=== PATIENT | male | born 1945 | race Caucasian/White ===

== ENCOUNTER 2017-03-06 08:39 | Inpatient (IN) | payer OTHER ==
[2017-03-01 11:49] VITALS: BMI 28.1
[2017-03-06] MEDS ORDERED: oxyCODONE HCL 10 MG SUSTAINED ACTING TABLET ONE (09:26)
[2017-03-06] MEDS: oxyCODONE HCL 10 MG SUSTAINED ACTING TABLET PO ONE (09:30)
--- NOTE | 2017-03-06 11:36 | HP ---
History & Physical Update - History History: No Change - Physical Physical: No Change - Assessment Assessment: No Change - Plan Plan: No Change
[2017-03-06] MEDS ORDERED: BUPIVACAINE HCL/PF 0.5% (5MG/ML) 10 ML VIAL ONE (12:07)
[2017-03-06] MEDS ORDERED: MIDAZOLAM HCL 2 MG/2 ML SINGLE DOSE VIAL ONE (12:08)
[2017-03-06] MEDS ORDERED: LIDOCAINE 1%/EPI 1:100000 (20 ML MULTI DOSE VIAL) ONE (12:22)
[2017-03-06] MEDS ORDERED: THROMBIN (BOVINE) 5,000 UNIT VIAL TP ONE (12:22)
[2017-03-06] MEDS ORDERED: GELATIN, ABSORBABLE 100 EACH SPONGE TP ONE (12:22)
[2017-03-06] MEDS ORDERED: LIDOCAINE 1%/EPI 1:100000 (50 ML MULTI DOSE VIAL) INF ONE (12:30)
[2017-03-06] MEDS ORDERED: ePHEDrine SULFATE 50 MG/1 ML AMPULE ONE (12:47)
[2017-03-06] MEDS ORDERED: BUPIVACAINE HCL/PF 2.5 MG/ML - 30 ML VIAL IJ ONE (14:39)
[2017-03-06] MEDS ORDERED: BUPIVACAINE HCL/PF 0.25% (2.5MG/ML) 10 ML VIAL IJ ONE ×2 (14:53)
[2017-03-06] MEDS ORDERED: oxyCODONE HCL 5 MG TABLET PO PRN ×2 (14:54→15:33)
[2017-03-06] MEDS ORDERED: ONDANSETRON 4 MG/2 ML VIAL IVPUSH PRN (14:54)
[2017-03-06] MEDS ORDERED: LACTATED RINGERS SOLUTION 1,000 ML IV SCH ×2 (15:00→15:45)
[2017-03-06] MEDS ORDERED: diazePAM 5 MG TABLET ONE (15:07)
[2017-03-06] MEDS: diazePAM 5 MG TABLET PO ONE (15:30)
--- NOTE | 2017-03-06 15:30 | OP ---
Operative Note - Note: Pre-Operative Diagnosis: lumbar spondylolisthesis Operation: posterior lumbar decompression, fusion, instrumentation, Transformainal interbody lumbar fusion of L5-S1 with allograft and neuromitoring Post-Operative Diagnosis: Same as Pre-op Surgeon: Manjinder Moore Aircraft Electrician: Gi Albert Anesthesiologist/CONSULTING BUSINESS DEVELOPER: Dimitri Roman Estimated Blood Loss (mls): 20 Fluid Volume Replaced (mls): 1,000 Operative Report Dictated: Yes
[2017-03-06] MEDS ORDERED: ONDANSETRON 4 MG/2 ML VIAL IVPB PRN (15:33)
--- NOTE | 2017-03-06 15:33 | SURG ---
Surgery Junior Underwriter Note Junior Underwriter: Gi Albert PA-C Date of Service: 03/06/17 Diagnosis: lumbar spondylolisthesis L5-S1 Procedure: posterior lumbar decompression, fusion, instrumentation, transformainal interbody fusion with allograft and neuromonitoring I was present for the entirety of the operative procedure. For further detail, please refer to operative report. Visit type - Case Type Case Type: Scheduled Admission - Emergency Emergency Visit: No - New patient This patient is new to me today: Yes Date on this admission: 03/06/17 - Critical Care Critical Care patient: No
[2017-03-06] MEDS ORDERED: ACETAMINOPHEN 1000 MG/100 ML VIAL (NON FORMULARY) IVPB ONE (15:43)
[2017-03-06] MEDS ORDERED: SODIUM CHLORIDE 1,000 ML IV SCH (16:00)
[2017-03-06] MEDS ORDERED: NYSTATIN/TRIAMCINOLONE TOPICAL CREAM 15 GM TUBE TP PRN (16:22)
[2017-03-06] MEDS ORDERED: traMADol HCL 50 MG TABLET PO PRN (17:00)
[2017-03-06] MEDS ORDERED: PT OWN MED DRAWER 7, Y5N ONE (17:58)
[2017-03-06] MEDS: KETOROLAC TROMETHAMINE 30 MG/1 ML VIAL IVPUSH PRN (18:04)
[2017-03-06] MEDS: oxyCODONE HCL 5 MG TABLET PO PRN ×2 (18:04→22:16)
--- NOTE | 2017-03-06 18:21 | PN ---
Progress Note (short form) - Note Progress Note: Pts sacral area and inbetween his buttock is red, including down to his testicles. No induration, skin intact. Nystatin ordered by Dr. Moore
[2017-03-06] MEDS ORDERED: CYCLOBENZAPRINE HCL 10 MG TABLET (FP) PO PRN (21:00)
[2017-03-06] MEDS: CEFAZOLIN (PRE-DOCKED) 50 ML IVPB SCH (21:26)
[2017-03-06] MEDS ORDERED: ACETAMINOPHEN 325 MG TABLET (FP) PO PRN (22:00)
[2017-03-07] MEDS: KETOROLAC TROMETHAMINE 30 MG/1 ML VIAL IVPUSH PRN (01:30)
[2017-03-07] MEDS: CEFAZOLIN (PRE-DOCKED) 50 ML IVPB SCH (04:49)
[2017-03-07 08:02] LABS: MCH 27.7 pg (25.7-33.7); MCHC 32.7 g/dl (32.0-35.9); MEAN CELL VOLUME 84.8 fl (80-96); MEAN PLT VOLUME 8.2 fl (7.5-11.1); PLATELET COUNT 250 K/MM3 (134-434); RDW 14.2 % (11.9-15.9); WHITE BLOOD COUNT 16.8 K/mm3 (4.0-10.8)
[2017-03-07 08:04] LABS: ANION GAP 6 (8-16); CALCIUM 8.5 mg/dl (8.4-10.2); CO2 31 mmol/L (22-28); CREATININE 1.4 mg/dl (0.6-1.3); GLUCOSE,RANDOM 112 mg/dl (74-106)
[2017-03-07] MEDS: oxyCODONE HCL 10 MG SUSTAINED ACTING TABLET PO ONE (09:26)
[2017-03-07] MEDS: diazePAM 5 MG TABLET PO ONE (09:26)
[2017-03-07] MEDS ORDERED: TIOTROPIUM BROMIDE 18 MCG/INH (DEVICE W/ 5 CAPSULES) IH SCH (10:00)
[2017-03-07] MEDS ORDERED: amLODIPine BESYLATE 5 MG TABLET (FP) PO SCH (10:00)
[2017-03-07 10:11] LABS: HIV 1 & 2 AB NEGATIVE; HIV 1 AGp24 NEGATIVE
--- NOTE | 2017-03-07 11:05 | DS ---
Physical Exam: SUBJECTIVE: Patient seen and examined he states that his left leg pain is improved. Improvements in tingling also noted. OBJECTIVE: Vital Signs Temperature 98.7 F 03/07/17 06:00 Pulse Rate 95 H 03/07/17 06:00 Respiratory Rate 18 03/07/17 06:00 Blood Pressure 109/67 03/07/17 06:00 O2 Sat by Pulse Oximetry (%) 90 L 03/06/17 22:35 PHYSICAL EXAM GENERAL: The patient is awake, alert, and fully oriented, in no acute distress. NECK: Trachea midline, full range of motion, supple. LUNGS: Breath sounds equal, clear to auscultation bilaterally, no wheezes, no crackles, no accessory muscle use. HEART: Regular rate and rhythm, S1, S2 without murmur, rub or gallop. ABDOMEN: Soft, nontender, nondistended, normoactive bowel sounds, no guarding, no rebound. Back: Dressing changed. Incisions c/d/i with dermabond. No evidence of hematoma , ecchymosis, erythema. EXTREMITIES: 2+ pulses, warm, well-perfused, no edema b/l upper and lower ext. No calf tenderness noted b/l or swelling. NEUROLOGICAL: Normal speech, gait not observed. Dorsi/plantar/EHL flexion 5/5 b/ l PSYCH: Normal mood, normal affect. LABS CBC,CMP WBC 16.8 K/mm3 (4.0-10.8) H 03/07/17 07:40 RBC 4.89 M/mm3 (4.00-5.60) 03/07/17 07:40 Hgb 13.6 GM/dl (11.7-16.9) 03/07/17 07:40 Hct 41.5 % (35.4-49) 03/07/17 07:40 MCV 84.8 fl (80-96) 03/07/17 07:40 MCHC 32.7 g/dl (32.0-35.9) 03/07/17 07:40 RDW 14.2 % (11.9-15.9) 03/07/17 07:40 Plt Count 250 K/MM3 (134-434) 03/07/17 07:40 MPV 8.2 fl (7.5-11.1) 03/07/17 07:40 Sodium 135 mmol/L (136-145) L 03/07/17 07:40 Potassium 4.6 mmol/L (3.5-5.1) 03/07/17 07:40 Chloride 98 mmol/L (98-107) 03/07/17 07:40 Carbon Dioxide 31 mmol/L (22-28) H 03/07/17 07:40 Anion Gap 6 (8-16) L 03/07/17 07:40 BUN 15 mg/dl (7-18) 03/07/17 07:40 Creatinine 1.4 mg/dl (0.6-1.3) H 03/07/17 07:40 Random Glucose 112 mg/dl (74-106) H 03/07/17 07:40 Calcium 8.5 mg/dl (8.4-10.2) 03/07/17 07:40 HOSPITAL COURSE: Date of Admission:03/06/17 Date of Discharge: 03/07/17 The patient was admitted to the Med-Surg Unit after an elective repair of their L5-S1 spondylolisthesis. Now, s/p L5-S1 lumbar fusion. The day of surgery, the patient ambulated the hallways with assistance. Narcotic and non-narcotic pain management control was achieved with an oral and IV approach. An xray was obtained and confirmed hardware placement at L5-S1, no fractures or dislocations. Emily-operative IV ABX were administered. DVT prophylaxis was achieved with SCD( to right leg only, h/o LLE bypass) and early ambulation. The patient ambulated with Physical Therapy and no services were recommended upon discharge. Narcotic scripts and or muscle relaxants were checked with [employer]AF[employer] INSPECTOR prior to escibe. The discharge instructions and an oral pain management plan were reviewed with the patient. All questions answered. Above plan discussed with Dr. Moore and agreed. Minutes to complete discharge: 20 <Gi Albert - Last Filed: 03/07/17 15:22> Physical Exam: SUBJECTIVE: Patient seen and examined OBJECTIVE: Vital Signs Temperature 98.0 F 03/07/17 14:26 Pulse Rate 78 03/07/17 14:26 Respiratory Rate 18 03/07/17 14:26 Blood Pressure 107/68 03/07/17 14:26 O2 Sat by Pulse Oximetry (%) 90 L 03/07/17 14:26 PHYSICAL EXAM GENERAL: The patient is awake, alert, and fully oriented, in no acute distress. HEAD: Normal with no signs of trauma. EYES: PERRL, extraocular movements intact, sclera anicteric, conjunctiva clear. ENT: Ears normal, nares patent, oropharynx clear without exudates, moist mucous membranes. NECK: Trachea midline, full range of motion, supple. LUNGS: Breath sounds equal, clear to auscultation bilaterally, no wheezes, no crackles, no accessory muscle use. HEART: Regular rate and rhythm, S1, S2 without murmur, rub or gallop. ABDOMEN: Soft, nontender, nondistended, normoactive bowel sounds, no guarding, no rebound, no hepatosplenomegaly, no masses. EXTREMITIES: 2+ pulses, warm, well-perfused, no edema. NEUROLOGICAL: Cranial nerves II through XII grossly intact. Normal speech, gait not observed. PSYCH: Normal mood, normal affect. SKIN: Warm, dry, normal turgor, no rashes or lesions noted. LABS CBC,CMP WBC 16.8 K/mm3 (4.0-10.8) H 03/07/17 07:40 RBC 4.89 M/mm3 (4.00-5.60) 03/07/17 07:40 Hgb 13.6 GM/dl (11.7-16.9) 03/07/17 07:40 Hct 41.5 % (35.4-49) 03/07/17 07:40 MCV 84.8 fl (80-96) 03/07/17 07:40 MCHC 32.7 g/dl (32.0-35.9) 03/07/17 07:40 RDW 14.2 % (11.9-15.9) 03/07/17 07:40 Plt Count 250 K/MM3 (134-434) 03/07/17 07:40 MPV 8.2 fl (7.5-11.1) 03/07/17 07:40 Sodium 135 mmol/L (136-145) L 03/07/17 07:40 Potassium 4.6 mmol/L (3.5-5.1) 03/07/17 07:40 Chloride 98 mmol/L (98-107) 03/07/17 07:40 Carbon Dioxide 31 mmol/L (22-28) H 03/07/17 07:40 Anion Gap 6 (8-16) L 03/07/17 07:40 BUN 15 mg/dl (7-18) 03/07/17 07:40 Creatinine 1.4 mg/dl (0.6-1.3) H 03/07/17 07:40 Random Glucose 112 mg/dl (74-106) H 03/07/17 07:40 Calcium 8.5 mg/dl (8.4-10.2) 03/07/17 07:40 HOSPITAL COURSE: Date of Admission:03/06/17 Date of Discharge: 03/16/17 The patient was admitted to the Med-Surg Unit after an elective repair of their L5-S1 stenosis. Now, s/p Lumbar Fusion L5-S1. The day of surgery, the patient ambulated the hallways with assistance. Narcotic and non-narcotic pain management control was achieved with an oral and IV approach. POD #1, the surgical drain was removed fully intact and without incident. An xray was obtained and confirmed hardware placement at L5-S1, no fractures or dislocations. Emily-operative IV ABX were administered. DVT prophylaxis was achieved with SCDs and early ambulation. The patient ambulated with Physical Therapy and no services were recommended upon discharge. Narcotic scripts and or muscle relaxants were checked with [place] [employer] INSPECTOR prior to escibe. The discharge instructions and an oral pain management plan were reviewed with the patient. All questions answered. Above plan discussed with Dr. Moore and agreed. <Manjinder Moore - Last Filed: 03/16/17 10:31> Visit type - Case Type Case Type: Scheduled Admission - Emergency Emergency Visit: No - New patient This patient is new to me today: No - Critical Care Critical Care patient: No <Gi Albert - Last Filed: 03/07/17 15:22>
[2017-03-07 14:27] VITALS: BP 107/68; PULSE 78; TEMP 98
[2017-03-07] MEDS ORDERED: ATORVASTATIN CA 20 MG TABLET (FP) PO SCH (22:00)
== END 2017-03-07 17:24 | disposition home or self-care (01) | DRG 460 ==
LOC: FM/S 08:39
PROVIDERS: ADMIT Orthopaedic Surgery Orthopaedic Surgery of the Spine; ATTEND Orthopaedic Surgery Orthopaedic Surgery of the Spine
PROC: 0SG30K1 Fusion of Lumbosacral Joint with Nonautologous Tissue Substitute, Posterior Approach, Posterior Column, Open Approach (ICD-10-PCS; principal; 2017-03-06 13:18)
DX: M43.17 Spondylolisthesis, lumbosacral region (principal); I10 Essential (primary) hypertension; E78.5 Hyperlipidemia, unspecified
CPT/HCPCS: 36415; 72100-TC; 80048; 85027; 86803; 87389; 94010; 94760; 97116-GP; 97162-GP